=== PATIENT | male | born 1980 | race African-American/Black ===

== ENCOUNTER 2019-12-31 16:32 | Outpatient (CLI) | payer BC, OTHER ==
--- NOTE | 2019-12-31 16:51 | RAD ---
RADIOGRAPH CHEST 2 VIEWS: DATE: 12/31/2019 HISTORY: 39-year-old male, COVID-19 +5 weeks ago. Post recovery checkup. COMPARISON: None FINDINGS: There is no airspace density, pulmonary edema, pleural effusion, pneumothorax, or cardiomegaly. There is a horizontally oriented thin platelike density in the right middle lobe consistent with either scar or subsegmental atelectasis. IMPRESSION: No active disease
== END 2019-12-31 16:33 | disposition home or self-care (01) ==
LOC: MADRAD 16:32
PROVIDERS: ATTEND Family Medicine
DX: U07.1 COVID-19 (principal)
CPT/HCPCS: 71046

== ENCOUNTER 2020-01-02 07:49 | Emergency (ER) | payer BC, OTHER ==
[2020-01-02] MEDS ORDERED: Sodium Chloride 0.9% 100 ML ONE (08:40)
[2020-01-02] MEDS ORDERED: Acetaminophen 500 MG TAB ONE (08:40)
[2020-01-02] MEDS ORDERED: Sodium Chloride 0.9% 2,000 ML ONE (08:40)
[2020-01-02] MEDS ORDERED: Cefepime 2 GM VIAL ONE (08:40)
[2020-01-02] MEDS ORDERED: Enoxaparin Sodium 40 MG/0.4 ML SYRINGE ONE (09:14)
[2020-01-02] MEDS ORDERED: Ondansetron PF 4 MG/2 ML Vial ONE (09:14)
[2020-01-02 09:44] LABS: ALT (SGPT) 119 U/L (8-55); AST (SGOT) 78 U/L (5-34); Albumin 3.6 g/dL (3.5-5.0); Alkaline Phosphatase 61 U/L (40-110); Anion Gap 16 mmol/L (10-20); BUN (Urea Nitrogen) 14 mg/dL (8.9-20.6); Bilirubin, Total 1.7 mg/dL (0.2-1.2); Calc. Creatinine Clearance 0 mL/min (70-130); Calcium 8.9 mg/dL (7.8-10.44); Carbon Dioxide 23 mmol/L (22-29); Chloride 101 mmol/L (98-107); Estimated GFR-MDRD 72; Globulin 3.9 g/dL (2.4-3.5); Glucose 172 mg/dL (70-105); Potassium 3.2 mmol/L (3.5-5.1); Protein, Total 7.5 g/dL (6.0-8.3); Sodium 137 mmol/L (136-145)
[2020-01-02] MEDS ORDERED: NS 0.9% w/ 20 MEQ KCL 1,000 ML ONE (09:47)
[2020-01-02] MEDS ORDERED: Azithromycin 500 MG VIAL ONE (09:47)
[2020-01-02] MEDS ORDERED: Sodium Chloride 0.9% 250 ML 250 ML ONE (09:47)
[2020-01-02 09:51] LABS: Anisocytosis SLIGHT = 6-15 cells (100X) (0-5/hpf); Band 38 % (5-11); Hemoglobin 13.5 g/dL (14.0-18.0); Hypochromia SLIGHT = 6-15 cells (100X) (0-5/hpf); Large Platelets SLIGHT; Lymphocytes 3 % (21-51); MDiff Complete? YES; Mean Corpuscular HGB CONC 31.6 g/dL (32.0-36.0); Mean Corpuscular Hemoglobin 24.4 pg (27.0-31.0); Mean Corpuscular Volume 77.3 fL (78.0-98.0); Mean Platelet Volume 8.6 fL (7.4-10.4); Microcytosis SLIGHT = 6-15 cells (100X) (0-5/hpf); Monocytes 11 % (0-10); Neutrophil 48 % (42-75); Platelet Count 109 thou/uL (130-400); Platelet Morphology Comment Appears Decreased; RBC Distribution Width 14.4 % (11.5-14.5); Red Blood Cell (RBC) Count 5.53 mill/uL (4.70-6.10); White Blood Cell (WBC) Count 8.3 thou/uL (4.8-10.8)
[2020-01-02 10:34] LABS: INR-International Normal Ratio 1.2; PTT 35.7 sec (22.9-36.1); Prothrombin Time 15.5 sec (12.0-14.7)
[2020-01-02] MEDS ORDERED: Sodium Chloride 0.9% 100 ML BAG ONE (11:24)
[2020-01-02] MEDS ORDERED: Iopamidol 370 76% 125 ML VIAL FS ONE (11:24)
[2020-01-02] MEDS ORDERED: Prochlorperazine 10 MG/2 ML VIAL ONE (11:34)
--- NOTE | 2020-01-02 13:50 | CT ---
CTA OF THE THORAX UTILIZING IV CONTRAST, PE PROTOCOL, AND 3D REFORMATTED IMAGING: Indication: Shortness of breath, history of Covid related diagnosis and elevated D-Dimer. Comparison: Noncontrast CT of the thorax, 01-02-2020 at 8:46 a.m. FINDINGS: No definite central or segmental pulmonary embolus is evident. There is persistent consolidation with in the right middle lobe with small right pleural effusion. There are areas of mild subsegmental volu me loss within the superior segment of the right lower lobe. There is prominent right hilar lymphaden opathy. The largest measures 2.2 cm. Subcarinal lymphadenopathy is present measuring 2.4 cm. There is a right paratracheal lymph node measuring 2.2 cm. There is elevation of the right hemidiaphragm. The re is diffuse hepatic steatosis. There are scattered degenerative and osteoarthritic change. No defin ite acute osseous abnormality is evident. IMPRESSION: 1. No definite central or segmental pulmonary embolus. 2. Persistent consolidation right middle lobe, suspicious for pneumonia. 3. Prominent right hilar and mediastinal lymphadenopathy may reflect reactive lymph nodes. Recommend CT follow up in 6-8 weeks to document resolution. 4. Small right pleural effusion. 5. Prominent fatty liver. POS: BH
--- NOTE | 2020-01-03 10:36 | CT ---
CT OF THE THORAX WITHOUT CONTRAST: INDICATION: History of COVID, shortness of breath, and tachycardia. COMPARISON: PA and lateral of the chest dated 12/31/2019. FINDINGS: There is slight elevation of the right hemidiaphragm. There is a component of subsegmental volume lo ss involving the superior right lower lobe. There are air bronchograms and consolidation within the lateral right middle lobe. Left lung is clear. There is a small left pleural effusion. There is de nse fatty infiltration of the liver. Adrenal glands are normal-appearing. The lack of IV contrast l imits evaluation of the hilar region for lymphadenopathy or mass. There are mildly prominent mediast inal lymph nodes. There is a 1.2 cm right paratracheal lymph node. An additional 1.5 cm right parat rodrigo lymph node is evident. There is enlargement of the subcarinal lymph node measuring 1.9 cm. There is an AP window lymph node measuring 1.2 cm. No axillary lymphadenopathy is evident. There is scattered degenerative and osteoarthritic change. IMPRESSION: 1. Area of airspace consolidation in the lateral right middle lobe is suspicious for pneumonia. Thi s is more suspicious for an entity such as a community-acquired bacterial-type pneumonia. This is no t a pattern normally seen with atypical infectious process such as COVID. Would recommend correlatio n with COVID testing. 2. Enlarged lymph nodes of the mediastinum is suspicious for reactive lymphadenopathy. 3. Followup CT of the thorax after appropriate therapy is recommended to document clearance. The la ck of IV contrast limits evaluation for hilar lymphadenopathy or mass. 4. There is an area of subsegmental volume loss within the right lower lobe. POS: IVETT
== END 2020-01-02 12:00 | disposition short-term general hospital (02) ==
LOC: MADERS 07:49
DX: A41.9 Sepsis, unspecified organism (principal); J18.9 Pneumonia, unspecified organism; E87.6 Hypokalemia; R19.7 Diarrhea, unspecified; R11.2 Nausea with vomiting, unspecified; I10 Essential (primary) hypertension
CPT/HCPCS: 71250; 71275; 80053; 83605; 83735; 85025; 85379; 85610; 85730; 86140; 87040; 87804; 96365; 96366; 96367; 96372; 96375; J0456; J0692; J0780; J1650; J2405; J3480; J3490; J7050; Q9967